=== PATIENT | female | born 1940 | race Hispanic/Latino ===

== ENCOUNTER 2019-03-15 15:32 | Outpatient (CLI) | payer MEDICARE ==
--- NOTE | 2019-03-15 16:30 | RAD ---
LUMBAR SPINE: 03/15/19 Three views. HISTORY: Spondylosis. Lumbar radiculopathy. Moderate degenerative changes. Degenerative disc changes are prominent at L3-4 and L4-5. End plate sc lerosis at L4-5 is prominent. There is a scoliotic curvature with convexity to the left with apex at L2-3 measured at 23 degrees. Moderate osteophytes from the lumbar vertebrae and moderate facet hypert rophy. No evidence of spondylolisthesis. IMPRESSION: Moderate degenerative changes as described. POS: OFF
== END 2019-03-15 15:33 | disposition home or self-care (01) ==
LOC: RAD 15:32
PROVIDERS: ATTEND Family Medicine
DX: M47.26 Other spondylosis with radiculopathy, lumbar region (principal)
CPT/HCPCS: 72100

== ENCOUNTER 2020-05-24 15:30 | Outpatient (CLI) | payer MEDICARE ==
--- NOTE | 2020-05-24 16:02 | RAD ---
EXAM: XR Lumbar Spine 2 Or 3 View DATE: 05/24/2020 3:35 PM INDICATION: Acute low back pain COMPARISON: March 15, 2019 FINDING: Levoscoliosis of the lumbar spine persists. Moderate multilevel disc degenerative and facet osteoarthritic change is stable. No acute fracture or subluxation is evident. There are cholecystectomy clips within the right upper quadrant. There are moderate scattered vascular calcific ations of the abdominal pelvic vasculature. IMPRESSION:Stable lumbar scoliosis and moderate multilevel spondylosis.
--- NOTE | 2020-05-24 16:23 | RAD ---
AP PELVIS: 05/24/20 HISTORY: Acute fracture, low back pain without sciatica. FINDINGS/IMPRESSION: There are degenerative changes in the lumbar spine and the hip joints bilaterally. No acute fracture or dislocation identified. POS: OFF
== END 2020-05-24 15:31 | disposition home or self-care (01) ==
LOC: BICRAD 15:30
PROVIDERS: ATTEND Physician Assistant
DX: M54.5 Low back pain (principal); M47.816 Spondylosis without myelopathy or radiculopathy, lumbar region; M41.9 Scoliosis, unspecified; M16.0 Bilateral primary osteoarthritis of hip
CPT/HCPCS: 72100; 72170; 81001

== ENCOUNTER 2020-06-05 08:59 | Outpatient (CLI) | payer MEDICARE ==
--- NOTE | 2020-06-05 10:31 | MRI ---
EXAM: MRI Lumbar Spine WO Con PROVIDED CLINICAL HISTORY: Lumbar spondylosis COMPARISON: None FINDINGS: 5 lumbar vertebral bodies are assumed. Prominent left convexity curvature of the lumbar spine. Slight anterolisthesis of L3 on L4 and L2 on L3. Vertebral body heights appear preserved. No focal concerning regional marrow signal abnormality is evident. The conus medullaris is normal in signal an d terminates at an appropriate level. The visualized extraspinal soft tissues appear unremarkable. L1-L2: Broad-based disc bulge and bilateral facet arthritis. No significant central canal or foraminal narro wing apparent. L2-L3: Disc space height loss and endplate degenerative change. Broad-based disc bulge and bilateral facet a rthritis. Severe right foraminal narrowing. Moderate right subarticular narrowing. No significant central canal or left foraminal narrowing apparent. L3-L4: Broad-based disc bulge and bilateral facet arthritis. Moderate subarticular and central canal stenosi s. There is severe right foraminal narrowing. There is mild left foraminal narrowing. L4-5: Broad-based disc bulge and bilateral facet arthrosis. Moderate left and severe right foraminal narrow ing. Severe left subarticular narrowing moderate central canal stenosis. L5-S1: Broad-based disc bulge and bilateral facet arthritis. There is moderate left foraminal narrowing. No significant central canal or right foraminal narrowing. IMPRESSION: Advanced multilevel lumbar disc and facet degenerative change and with lumbar scoliosis, producing mu ltilevel canal and foraminal narrowing as described.
== END 2020-06-05 09:00 | disposition home or self-care (01) ==
LOC: BICMRI 08:59
PROVIDERS: ATTEND Physician Assistant
DX: M47.816 Spondylosis without myelopathy or radiculopathy, lumbar region (principal); M41.9 Scoliosis, unspecified; M51.36 Other intervertebral disc degeneration, lumbar region; M48.061 Spinal stenosis, lumbar region without neurogenic claudication; M48.07 Spinal stenosis, lumbosacral region
CPT/HCPCS: 72148

== ENCOUNTER 2020-08-30 12:27 | Outpatient (CLI) | payer MEDICARE | END 2020-08-30 12:28 | disposition home or self-care (01) | LOC: BICRAD 12:27 | PROVIDERS: ATTEND Family Medicine | DX: M25.441 Effusion, right hand (principal); M25.442 Effusion, left hand; S62.617D Displaced fracture of proximal phalanx of left little finger, subsequent encounter for fracture with routine healing ==

== ENCOUNTER 2021-06-19 14:03 | Outpatient (CLI) | payer MEDICARE ==
[2021-06-19 16:09] LABS: Anion Gap 14 mmol/L (10-20); BUN (Urea Nitrogen) 23 mg/dL (9.8-20.1); Calc. Creatinine Clearance 0 mL/min (70-130); Calcium 9.5 mg/dL (7.8-10.44); Carbon Dioxide 26 mmol/L (23-31); Chloride 103 mmol/L (98-107); Glucose 114 mg/dL (83-110); Potassium 4.4 mmol/L (3.5-5.1); Sodium 139 mmol/L (136-145)
[2021-06-20 08:54] LABS: SARS-CoV-2 PCR by NAA Not Detected (NotDetected)
== END 2021-06-19 14:04 | disposition home or self-care (01) ==
LOC: LABBT 14:03
PROVIDERS: ATTEND Anesthesiology Pain Medicine
DX: Z01.818 Encounter for other preprocedural examination (principal); Z20.822 Contact with and (suspected) exposure to COVID-19
CPT/HCPCS: 80048; 93005; U0003; U0005; 93010

== ENCOUNTER 2021-06-24 10:43 | Day surgery (SDC) | payer MEDICARE ==
[2021-06-24] MEDS ORDERED: Propofol 500 MG/50 ML VIAL ONE (12:24)
[2021-06-24] MEDS ORDERED: EPINEPHrine 1 MG/ML AMP ONE ×2 (12:34→13:41)
[2021-06-24] MEDS ORDERED: Bupivacaine PF 0.5% 30 ML VIAL ONE ×2 (12:34→13:41)
[2021-06-24] MEDS ORDERED: Fentanyl 100 MCG/2 ML VIAL ONE (12:34)
[2021-06-24] MEDS ORDERED: CEFAZOLIN 1 GM VIAL ONE (12:37)
[2021-06-24] MEDS ORDERED: Sodium Chloride 0.9% 100 ML ONE (12:37)
[2021-06-24] MEDS ORDERED: Ondansetron PF 4 MG/2 ML Vial ONE (13:03)
[2021-06-24] MEDS ORDERED: PROPOFOL 200 MG/20 ML VIAL ONE (13:03)
== END 2021-06-24 15:15 | disposition home or self-care (01) ==
LOC: SDC 10:43
PROVIDERS: ATTEND Anesthesiology Pain Medicine
PROC: 0JH70DZ Insertion of Multiple Array Stimulator Generator into Back Subcutaneous Tissue and Fascia, Open Approach (ICD-10-PCS; principal; 2021-06-24)
PROC: 00HU3MZ Insertion of Neurostimulator Lead into Spinal Canal, Percutaneous Approach (ICD-10-PCS; 2021-06-24)
DX: M47.26 Other spondylosis with radiculopathy, lumbar region (principal); G89.29 Other chronic pain; E11.42 Type 2 diabetes mellitus with diabetic polyneuropathy; M48.00 Spinal stenosis, site unspecified; I10 Essential (primary) hypertension; M19.90 Unspecified osteoarthritis, unspecified site; E78.5 Hyperlipidemia, unspecified; Z79.1 Long term (current) use of non-steroidal anti-inflammatories (NSAID); Z79.82 Long term (current) use of aspirin; Z79.84 Long term (current) use of oral hypoglycemic drugs; Z79.899 Other long term (current) drug therapy
CPT/HCPCS: 72020; 76000; C1713; J0171; J0690; J2405; J2704; J3010; J3490; S0020

== ENCOUNTER 2022-04-10 08:26 | Outpatient (CLI) | payer MEDICARE | END 2022-04-10 08:27 | disposition home or self-care (01) | LOC: BICCT 08:26 | PROVIDERS: ATTEND Family Medicine | DX: R10.32 Left lower quadrant pain (principal); R30.0 Dysuria; K57.30 Diverticulosis of large intestine without perforation or abscess without bleeding; K63.89 Other specified diseases of intestine | CPT/HCPCS: 74177 ==